=== PATIENT | female | born 1980 ===

== ENCOUNTER 2020-06-26 23:21 | Emergency (ER) | payer BC, MEDICAID ==
[2020-06-27 00:38] LABS: Bilirubin Neg (Negative); Blood, Urine 10 (Negative); Clarity Cloudy (Clear); Glucose, Urine (Dipstick) Normal (Negative); Ketone, Urine Negative (Negative); Leukocyte 500 (Negative); Nitrite Negative (Negative); Protein, Urine (Dipstick) Negative (Neg-Trace); Specific Gravity, Urine 1.005 (1.002-1.036); Urobilinogen Normal mg/dL (Less than 2)
[2020-06-27 00:48] LABS: RBC/HPF 0-3 HPF (0-3); WBC/HPF 21-50 HPF (0-3)
[2020-06-27 00:49] LABS: Bacteria/HPF 3+ HPF (None Seen); Mucous/LPF Rare LPF (<2+); Trichomonas/HPF 1+ HPF (None Seen); Yeast-Budding 1+ HPF (None Seen)
[2020-06-27 00:51] LABS: Transitional Epithelial 0-3 HPF (None Seen)
== END 2020-06-27 00:44 | disposition left against medical advice (07) ==
LOC: CSHERS 23:21
DX: N39.0 Urinary tract infection, site not specified (principal); E78.5 Hyperlipidemia, unspecified; F17.210 Nicotine dependence, cigarettes, uncomplicated
CPT/HCPCS: 81003; 81015; 87086; 99284